=== PATIENT | female | born 1995 | race Hispanic/Latino ===

== ENCOUNTER → 2019-10-18 | Day surgery (SDC) | payer BC, OTHER ==
[2019-10-13 15:27] LABS: BASOPHILS # (AUTO) 0.1 (0.0-0.1); BASOPHILS % 0.9 % (0.0-1.0); EOSINOPHILS # (AUTO) 0.1 (0.0-0.4); EOSINOPHILS % 1.6 % (0.0-6.0); HEMATOCRIT 38.5 % (34.2-44.1); HEMOGLOBIN 13.2 g/dL (12.0-16.0); LYMPHOCYTES # (AUTO) 2.3 (1.0-3.2); LYMPHOCYTES % 27.8 % (18.0-39.1); MEAN CORPUSCULAR HEMOGLOBIN 31.7 pg (28-32); MEAN CORPUSCULAR HGB CONC 34.3 g/dL (31-35); MEAN CORPUSCULAR VOLUME 92.3 fL (81-99); MONOCYTES # (AUTO) 0.5 (0.2-0.8); MONOCYTES % 6.2 % (4.4-11.3); NEUTROPHILS # (AUTO) 5.2 (2.1-6.9); NEUTROPHILS % 63.3 % (38.7-80.0); PLATELET COUNT 219 x10e3/uL (140-360); RED BLOOD COUNT 4.17 x10e6/uL (3.6-5.1); RED CELL DISTRIBUTION WIDTH 12.4 % (11.7-14.4)
[~2019-10-18] MED LIST: ACETAMINOPHEN 1000 MG/100 ML IV ONE; BUPIVACAINE 0.25%/EPI 30ML SDV INJ ONE; BUTALB-ASPIRIN1 EACH PO; DEXAMETHASONE SOD PHOS INJ 4 MG/ML VIAL ONE; GLYCOPYRROLATE INJ 0.2 MG/ML VIAL ONE; LIDOCAINE HCL 2% LOCAL INJ 5 ML SDV VIAL INJ ONE; NEOSTIGMINE 1 MG/ML 10ML VIAL ONE; ONDANSETRON HCL INJ 2MG/ML 2ML 2 MG/ML VIAL ONE; PROPOFOL IV EMULSION 10 MG/ML 20 ML VIAL ONE; ROCURONIUM BROMIDE 10 MG/ML 5ML VIAL IV ONE; SEVOFLURANE INHAL SOLN 250 ML PEN BTL ONE
[2019-10-18 11:15] VITALS: BP 107/75
--- NOTE | 2019-10-18 14:11 | Operative Report ---
DATE OF PROCEDURE: 10/18/2019 SURGEON: Jake Lerner MD PREOPERATIVE DIAGNOSIS: Mass of the occipital scalp. POSTOPERATIVE DIAGNOSIS: Mass of the occipital scalp. OPERATION PERFORMED: Excision of hemangioma of the occipital scalp. ANESTHESIA: General. COMPLICATIONS: None. ESTIMATED BLOOD LOSS: 25 mL. DESCRIPTION OF PROCEDURE: With the patient lying in bed in the prone position under good general endotracheal anesthesia, the occipital scalp and the back of the nap were prepped with Betadine solution and draped in the usual manner. The area overlying the mass was then infiltrated with 0.25% Marcaine with epinephrine. An incision was made, it was carried down into the subcutaneous tissue and immediately rather significant bleeding was encountered. Flaps were then developed superiorly and inferiorly, and quickly became evident that this appeared to be hemangioma. There were large varicosities emanating from the palpable mass and as soon as one of the varicosities was opened the entire mass decompressed completely representing a hemangioma. The mass was then totally and completely removed with normal tissue all the way around, it extended all the way down to the posterior musculature of the neck and the mass was totally and completely removed, and sent for pathological examination. Hemostasis was then ascertained. The whole area was thoroughly irrigated and the wound was then closed in layers. The subcutaneous tissue was closed with interrupted sutures of 3-0 Vicryl and the skin was closed with interrupted vertical mattress sutures of 3-0 silk. A dressing was applied. The sponge, lap, and needle counts were correct. The patient tolerated the procedure well and returned to the recovery room in stable condition. Jake Lerner MD JLR/MODL /[id number]
== END | disposition home or self-care (01) ==
LOC: OR 06:12
PROVIDERS: ATTEND Surgery
DX: D18.09 Hemangioma of other sites (principal); Z01.812 Encounter for preprocedural laboratory examination; Z11.59 Encounter for screening for other viral diseases; Z79.82 Long term (current) use of aspirin
CPT/HCPCS: 21012; 36415; 81025; 85025; 87635; 88304; J0131; J1100; J2001; J2405; J2704; J2710